=== PATIENT | female | born 1965 | race Caucasian/White ===

== ENCOUNTER 2021-05-29 03:53 | Emergency (ER) | payer BC, OTHER ==
[~2021-05-29] VITALS: Ht 172.7 cm; Wt 75.3 kg
[2021-05-29 04:10] VITALS: BP 141/94
== END 2021-05-29 04:32 | disposition left against medical advice (07) ==
LOC: MED 03:53
DX: F30.9 Manic episode, unspecified (principal); G58.9 Mononeuropathy, unspecified
CPT/HCPCS: 99281

== ENCOUNTER 2021-07-25 03:15 | Emergency (ER) | payer BC, OTHER ==
[~2021-07-25] VITALS: Ht 170.2 cm; Wt 74.8 kg
--- NOTE | 2021-07-25 03:18 | NUR ---
PT KEELY BLS TO ER BED 06
[2021-07-25 03:25] VITALS: BP 113/76
--- NOTE | 2021-07-25 03:46 | NUR ---
56 Y/O FEMALE BIBA, C/O PSYCH EVAL. PATIENT PRESENTS TO ED WITH RAMBLING, EMOTIONALY LABILE. PT STATES SHE CALLED 911 FOR HER WHO IS "SEEING THINGS AND NOT TAKING CARE OF HI,SELF." PER EMS PT RECENTLY WAS D/C FROM A PSYCH FACILITY WHERE SHE WAS PLACED ON A 5150, FOR UNKOWN REASON. PT'S STATES SHE HAS BEEN NON MED COMPLIANT SINCE HER RELEASE. DENIES N/V/D; SKIN IS PINK/WARM/DRY; AAOX4 WITH EVEN AND STEADY GAIT; PT DENIES ANY FEVER, CP, SOB, OR COUGH AT THIS TIME; PATIENT STATES PAIN OF 0/10 AT THIS TIME; VSS; PATIENT POSITIONED FOR COMFORT; HOB ELEVATED; BEDRAILS UP X1; BED DOWN. ER MD MADE AWARE OF PT STATUS. HX: BIPOLAR AND SCHIZOPHRENIA NKA MEDS: VALPROIC ACID
--- NOTE | 2021-07-25 04:13 | NUR ---
ER MD AT BEDSIDE ASSESSING PT
--- NOTE | 2021-07-25 04:43 | NUR ---
xray at bedside
--- NOTE | 2021-07-25 05:16 | NUR ---
PT STATES "I AM WELL ENOUGH. I WANT TO GO HOME." DR. MIRANDA NOTIFIED.
--- NOTE | 2021-07-25 05:40 | NUR ---
DR. MIRANDA AT BEDSIDE FOR REEVALUATION
[2021-07-25 05:55] VITALS: BP 113/76
--- NOTE | 2021-07-25 05:56 | NUR ---
Patient does not wish to proceed with medical care recommended by DR MIRANDA. Patient given information related to possible complications, up to and including , which could occur as a result of leaving hospital at this time. Patient verbalizes understanding of risks involved leaving against medical advice. Patient has signed AMA form. VSS, A/OX4, AMBULATORY, UNLABORED BREATHING, AND CALM DEMEANOR.
[2021-07-25] MEDS ORDERED: AMOX-1230 PO (23:49)
== END 2021-07-25 05:48 | disposition left against medical advice (07) ==
LOC: MED 03:15
DX: F31.9 Bipolar disorder, unspecified (principal); F20.9 Schizophrenia, unspecified; Z79.899 Other long term (current) drug therapy
CPT/HCPCS: 71045; 93005; 99285; Q0092

== ENCOUNTER 2021-07-25 22:10 | Emergency (ER) | payer BC, OTHER ==
[~2021-07-25] VITALS: Ht 170.2 cm; Wt 75.9 kg
[2021-07-25 22:33] VITALS: BP 116/75
--- NOTE | 2021-07-25 22:38 | NUR ---
pt taken to er bed 09
--- NOTE | 2021-07-25 23:05 | NUR ---
XRAY AT BEDSIDE
--- NOTE | 2021-07-25 23:20 | NUR ---
56 Y/O FEMALE BIBS, C/O DOG BITE AT 2100 TONIGHT. 5/10 LEFT HAND PAIN S/P DOG BITE. SMALL BLACK DOG, THAT WAS BEHIND A GATE TO A HOME, STATES SHE ALWAYS PETS THE DOG BUT THIS TIME BIT HER. PT STATES DOG LOOKS HEALTHY AND FRIENDLY. PT DOES NOT WANT TO PURSUE ANY LEGAL ACTION AGAINST THE DOG. DENIES HX RX:DEPAKOTE AND RISPERIDONE (NONCOMPLIANT) ALLERGY:DEPAKOTE AND CODEINE
[2021-07-25] MEDS ORDERED: LIDOCAINE MPF 1% 10 MG/ML VIAL IM ONE (23:35)
[2021-07-25] MEDS ORDERED: AMOX-1230 PO (23:49)
--- NOTE | 2021-07-26 00:23 | NUR ---
PT NOW WANTS TO FILE REPORT AGAIST DOG, ANIMAL BITE REPORT TAKEN AND FAXED TO [facility]. PT WAS INFORMED AND DISCHARGED.
[2021-07-26 00:27] VITALS: BP 116/75
--- NOTE | 2021-07-26 00:31 | NUR ---
Patient discharged with v/s stable. Written and verbal after care instructions given and explained. Patient alert, oriented and verbalized understanding of instructions. Ambulatory with steady gait. All questions addressed prior to discharge. ID band removed. Patient advised to follow up with PMD. Rx of AMOXICILLIN given. Patient educated on indication of medication including possible reaction and side effects. Opportunity to ask questions provided and answered. A/OX4, VSS, UNLABORED BREATHING, AMBULATORY, AND CALM DEMEANOR.
== END 2021-07-26 00:27 | disposition home or self-care (01) ==
LOC: MED 22:10
DX: S61.412A Laceration without foreign body of left hand, initial encounter (principal); W54.0XXA Bitten by dog, initial encounter; Y93.89 Activity, other specified; Y92.89 Other specified places as the place of occurrence of the external cause; Y99.8 Other external cause status
CPT/HCPCS: 73120; 99283; Q0092

== ENCOUNTER 2021-07-26 20:48 | Emergency (ER) | payer OTHER ==
[~2021-07-26] VITALS: Ht 170.2 cm; Wt 73.9 kg
[~2021-07-26 20:48] MED LIST: AMOX-1230 PO
[2021-07-26 21:20] VITALS: BP 138/84
--- NOTE | 2021-07-26 21:23 | NUR ---
to lobby a/w bed ambulatory
--- NOTE | 2021-07-26 22:34 | NUR ---
PT CALLED VIA PHONE BY DR. MENJIVAR. PER DR. MENJIVAR PT LWBS.
== END 2021-07-26 22:34 | disposition left against medical advice (07) ==
LOC: MED 20:48
DX: S61.412A Laceration without foreign body of left hand, initial encounter (principal); Z53.21 Procedure and treatment not carried out due to patient leaving prior to being seen by health care provider; W54.0XXA Bitten by dog, initial encounter; Y93.89 Activity, other specified; Y92.89 Other specified places as the place of occurrence of the external cause; Y99.8 Other external cause status

== ENCOUNTER 2021-07-29 07:39 | Emergency (ER) | payer OTHER ==
[~2021-07-29] VITALS: Ht 170.2 cm; Wt 75.9 kg
[2021-07-29 07:50] VITALS: BP 123/74
--- NOTE | 2021-07-29 07:53 | NUR ---
PATIENT AMBULATED TO BED 8.
--- NOTE | 2021-07-29 08:15 | NUR ---
AT PT BEDSIDE
--- NOTE | 2021-07-29 08:26 | NUR ---
LAB AT PT BEDSIDE
[2021-07-29 08:30] LABS: APPEARANCE,URINE SL CLOUDY (CLEAR); BILIRUBIN,URINE NEGATIVE (NEGATIVE); BLOOD, URINE 1+ (NEGATIVE); COLOR,URINE YELLOW (YELLOW); LEUKOCYTE ESTERASE ,URINE NEGATIVE (NEGATIVE); NITRITE, URINE POSITIVE (NEGATIVE); UGLUCOSE NEGATIVE (NEGATIVE)
--- NOTE | 2021-07-29 08:30 | NUR ---
56 Y/ FEMALE BIB SELF DUE TO NAUSEA/VOMITTING X2 DAYS S/P STARTING NEW MEDICATION DEPAKOTE. PT DENIES SOB, CHEST PAIN, FEVER OR CHILLS. PMH: DENIES ALLERGIES: CODEINE
[2021-07-29 08:38] LABS: BASOPHILS # (AUTO) 0.1 K/uL (0.00-0.22); BASOPHILS % (AUTO) 0.8 % (0.0-2.0); EOSINOPHILS # (AUTO) 0.2 K/uL (0-0.4); EOSINOPHILS % (AUTO) 2.5 % (0.0-4.0); HEMOGLOBIN 11.9 g/dL (12.0-16.0); LYMPHOCYTES # (AUTO) 1.8 K/uL (2.5-16.5); LYMPHOCYTES % (AUTO) 26.3 % (20.5-51.1); MEAN CORPUSCULAR HEMOGLOBIN 28 pg (27-31); MEAN CORPUSCULAR HGB CONC 33 g/dL (33-37); MEAN CORPUSCULAR VOLUME 84.1 fL (80-94); MONOCYTES # (AUTO) 0.6 K/uL (0.8-1.0); MONOCYTES % (AUTO) 9.3 % (1.7-9.3); NEUTROPHILS # (AUTO) 4.2 K/uL (1.8-7.7); NEUTROPHILS % (AUTO) 61.1 % (42.2-75.2); PLATELET COUNT (AUTO) 259 K/uL (140-450); RED BLOOD CELL COUNT(AUTO) 4.28 MIL/uL (4.20-5.40); RED CELL DISTRIBUTION WIDTH 14.2 % (11.6-13.7)
[2021-07-29 08:59] LABS: ALBUMIN 3.5 g/dL (3.4-5.0); ANION GAP 9.3 (8-16); CARBON DIOXIDE 28.9 mmol/L (21-32); CREATININE 0.8 mg/dL (0.6-1.3); POTASSIUM 4.2 mmol/L (3.5-5.1); TOTAL BILIRUBIN 0.8 mg/dL (0.0-1.0)
[2021-07-29 09:13] LABS: CALCIUM OXALATE CRYSTALS,UR None Seen /HPF (None Seen); OTHER CRYSTALS,URINE None Seen /HPF (None Seen); RBC,URINE 0-5 /HPF (0-5); TRICHOMONAS,URINE None Seen /HPF (None Seen); TRIPLE PHOSPHATE CRYSTAL,UR None Seen /HPF (None Seen); URIC ACID CRYSTALS,URINE None Seen /HPF (None Seen); URINE AMORPHOUS URATE None Seen /HPF (None Seen); WBC,URINE 0-5 /HPF (0-5); YEAST,URINE None Seen /HPF (None Seen)
[2021-07-29 09:14] LABS: COARSE GRANULAR CASTS,URINE None Seen /LPF (None Seen); FINE GRANULAR CASTS,URINE None Seen /LPF (None Seen); HYALINE CASTS, URINE None Seen /LPF (None Seen); OTHER CASTS, URINE None Seen /LPF (None Seen); RED BLOOD CELL CASTS,URINE None Seen /LPF (None Seen); WAXY CASTS,URINE None Seen /LPF (None Seen)
--- NOTE | 2021-07-29 09:26 | NUR ---
PT RUNNING IN PLACE AT THIS TIME STATING THAT SHE IS COLD. I OFFERED HER BLANKETS AND SHE STATED SHE DOESNT WANT TO WAIT IN HERE AND WOULD RATHER WAIT IN LOBBY, PRIMARY RN MADE AWARE.
--- NOTE | 2021-07-29 09:28 | NUR ---
PT DECIDED THAT SHE COULD NOT WAIT IN ROOM. SHE WOULD RATHER WAIT IN THE LOBBY. MADE AWARE.
--- NOTE | 2021-07-29 09:41 | NUR ---
PT RETURNED BACK TO ER BED 8 AND STATED "ITS EVEN COLDER IN THE LOBBY". OFFERED BLANKETS A SECOND TIME SHE WAITS, PT STATED "IM FINE".
[2021-07-29] MEDS ORDERED: ONDA-188 PO (09:42)
[2021-07-29 09:58] VITALS: BP 123/74
== END 2021-07-29 09:58 | disposition home or self-care (01) ==
LOC: MED 07:39
DX: F41.9 Anxiety disorder, unspecified (principal); T42.6X5A Adverse effect of other antiepileptic and sedative-hypnotic drugs, initial encounter; Y92.89 Other specified places as the place of occurrence of the external cause; F31.9 Bipolar disorder, unspecified; Z88.5 Allergy status to narcotic agent; Z79.899 Other long term (current) drug therapy
CPT/HCPCS: 36415; 80053; 81001; 81025; 83690; 85025; 99283

== ENCOUNTER 2021-09-27 13:25 | Emergency (ER) | payer OTHER ==
[~2021-09-27] VITALS: Ht 167.6 cm; Wt 61.2 kg
[~2021-09-27 13:25] MED LIST changes: +ONDA-188 PO
[2021-09-27 13:27] VITALS: BP 138/71
[2021-09-27] MEDS ORDERED: KETOROLAC 60 MG/2 ML VIAL IM ONE (13:35)
[2021-09-27] MEDS ORDERED: IBUP-2213 PO (14:21)
[2021-09-27 14:30] VITALS: BP 110/67
== END 2021-09-27 14:30 | disposition home or self-care (01) ==
LOC: MED 13:25
DX: S90.122A Contusion of left lesser toe(s) without damage to nail, initial encounter (principal); Z79.899 Other long term (current) drug therapy; Z79.2 Long term (current) use of antibiotics; Z88.5 Allergy status to narcotic agent; Z88.8 Allergy status to other drugs, medicaments and biological substances; W22.8XXA Striking against or struck by other objects, initial encounter; Y92.89 Other specified places as the place of occurrence of the external cause; Y93.89 Activity, other specified; Y99.8 Other external cause status
CPT/HCPCS: 96372; 99283; J1885

== ENCOUNTER 2021-10-09 07:58 | Inpatient (IN) | payer BC, OTHER ==
[~2021-10-09] VITALS: Ht 170.2 cm; Wt 72.6 kg
[~2021-10-09 07:58] MED LIST changes: +IBUP-2213 PO
--- NOTE | 2021-10-09 07:59 | NUR ---
DR ZHANG AT BEDSIDE EVALUATING PT
--- NOTE | 2021-10-09 07:59 | NUR ---
PATIENT BIBA TO BED 5.
--- NOTE | 2021-10-09 08:01 | NUR ---
pt assisted into bed by amr to bed 05
[2021-10-09 08:02] VITALS: BP 139/72
[2021-10-09] MEDS ORDERED: LORazepam 2 MG/ML VIAL IM ONE (08:05)
[2021-10-09] MEDS ORDERED: OLANZapine 5 MG ODT PO ONE (08:05)
[2021-10-09 08:44] LABS: BARBITURATE, URINE NEGATIVE ng/ml (NEG <=200); BENZODIAZEPINE, URINE NEGATIVE ng/mL (NEG <=200); CANNABINOID, URINE NEGATIVE ng/mL (NEG <=50); COCAINE, URINE NEGATIVE ng/mL (NEG <=300); OPIATE, URINE NEGATIVE ng/mL (NEG <=2000); PHENCYCLIDINE SCREEN,URINE NEGATIVE ng/mL (NEG <=25)
--- NOTE | 2021-10-09 08:58 | NUR ---
56YO FEMALE BIBA FROM HOME. PER [facility] , PT CALLED X3 AND ASKED FOR PSYCHIATRIC EVALUATION. UPON ARRIVAL PT INSISTED ON EVALUATION STATING " SHE NEEDS TO BE SEEN" . PT AAOX4 WITH EPISODES OF CONFUSION. PT WILL CHANGE SUBJECTS EVERY OTHER SENTENCE. PT COOPERATIVE AND WITH BIPOLAR EMOTIONS. "KILL ME BECAUSE I CANT DO IT MYSELF" " I LOVE MY " " I CANT STAND MY " "IM NOT BIPOLAR" " I HAVE PTSD, HELP ME" " YOURE GOING TO KILL ME"" BEING IN A HOSPITAL IS HUMILIATING". HX" UNOBTAINABLE ALLERGIES: CODEINE, DEPAKOTE
--- NOTE | 2021-10-09 09:00 | NUR ---
PT SWABBED FOR COVID(NABEEL & NOVEL) . SPECIMEN HANDED TO LAB
--- NOTE | 2021-10-09 09:20 | NUR ---
PT AT REST AND SLEEPING SUPINE POSITION.
[2021-10-09 09:44] LABS: BASOPHILS % (AUTO) 0.4 % (0.0-2.0); EOSINOPHILS # (AUTO) 0.1 K/uL (0-0.4); EOSINOPHILS % (AUTO) 1.1 % (0.0-4.0); HEMATOCRIT 34.3 % (36-48); HEMOGLOBIN 11.1 g/dL (12.0-16.0); LYMPHOCYTES # (AUTO) 1.7 K/uL (2.5-16.5); LYMPHOCYTES % (AUTO) 23.7 % (20.5-51.1); MEAN CORPUSCULAR HEMOGLOBIN 27 pg (27-31); MEAN CORPUSCULAR HGB CONC 33 g/dL (33-37); MEAN CORPUSCULAR VOLUME 83.1 fL (80-94); MONOCYTES # (AUTO) 0.5 K/uL (0.8-1.0); MONOCYTES % (AUTO) 7.5 % (1.7-9.3); NEUTROPHILS # (AUTO) 4.8 K/uL (1.8-7.7); NEUTROPHILS % (AUTO) 67.3 % (42.2-75.2); PLATELET COUNT (AUTO) 240 K/uL (140-450); RED BLOOD CELL COUNT(AUTO) 4.13 MIL/uL (4.20-5.40); RED CELL DISTRIBUTION WIDTH 13.7 % (11.6-13.7); WHITE BLOOD COUNT (AUTO) 7.1 K/uL (4.8-10.8)
[2021-10-09 10:30] LABS: ACETAMINOPHEN < 0.5 ug/ml (10-30); SALICYLATE < 2.8 mg/dL (2.8-20.0)
[2021-10-09 10:44] LABS: ALBUMIN 3.2 g/dL (3.4-5.0); ANION GAP 7.8 (8-16); CARBON DIOXIDE 27.6 mmol/L (21-32); CREATININE 0.8 mg/dL (0.6-1.3); POTASSIUM 3.4 mmol/L (3.5-5.1); THYROID STIMULATING HORMONE 2.38 uIU/mL (0.34-3.74); TOTAL BILIRUBIN 1.2 mg/dL (0.0-1.0)
--- NOTE | 2021-10-09 13:21 | NUR ---
PT MEDICALLY CLEARED PER JARRET CELISHA
--- NOTE | 2021-10-09 13:33 | NUR ---
PT OFFERED AND PROVIDED WITH LUNCH. PT REFUSED "STILL SLEEPY". FOOD LEFT AT BEDSIDE
--- NOTE | 2021-10-09 17:10 | NUR ---
PT AWAKE, DENIES PAIN AT THIS TIME. STATES " STILL SLEEPY"
--- NOTE | 2021-10-09 17:15 | NUR ---
PT AMBULATED TO RESTROOM
--- NOTE | 2021-10-09 17:18 | NUR ---
PT AMBULATED BACK TO ROOM
--- NOTE | 2021-10-09 18:25 | NUR ---
PT PROVIDED WITH DINNER. PT EATING IN BED
--- NOTE | 2021-10-09 19:25 | NUR ---
REPORT GIVEN TO ZAC CLAY. ALL QUESTIONS ANSWERED. TRANSFER OF CARE AT THIS TIME
--- NOTE | 2021-10-09 20:00 | NUR ---
PATIENT APPEARS TO BE RESTING. RR APPEARS EVEN AND UNLABORED. CINDI SIDE RAILS UP FOR SAFETY. ALL NEEDS MET AT THIS TIME.
--- NOTE | 2021-10-09 21:30 | NUR ---
ALMA OFFERED FOOD AND DRINKS. SITTING UP AND EATING. ALL NEEDS MET
--- NOTE | 2021-10-09 23:07 | NUR ---
PATIENT RESTING IN BED, BED LOW AND LOCKED. ALL NEEDS MET AT THIS TIME.
--- NOTE | 2021-10-10 02:30 | NUR ---
PATIENT EATING AND STTING UP IN BED.
--- NOTE | 2021-10-10 03:30 | NUR ---
PATIENT APPEARS TO BE RESTING IN BED. RR EVEN AND UNLABORED CINDI. DOESNT APPEAR TO BE IN ANY RR DISTRESS. BED LOW AND LOCKED. ALL NEEDS MET.
--- NOTE | 2021-10-10 03:59 | NUR ---
VERBAL ORDER GIVEN BY MD LEARY. VITAL QSHIFT. VERBAL READBACK. ORDERS CARRIED OUT
--- NOTE | 2021-10-10 04:53 | NUR ---
Telepsych computer placed at foot of bed.
--- NOTE | 2021-10-10 07:20 | NUR ---
REPORT GIVEN TO DANNA SOLIZ. TRANSFER OF CARE
--- NOTE | 2021-10-10 07:25 | NUR ---
Recieved report from DANNA Burgess for transfer of care.
--- NOTE | 2021-10-10 08:20 | NUR ---
PATIENT IS SPEAKING TO PSYCHIATRIST.
--- NOTE | 2021-10-10 08:53 | NUR ---
CALLED AND SPOKE TO [place] [employer] DISPATCH TO COME WRITE A 5150 HOLD. DISPATCHER SAID THEY WILL SEND SOMEONE OUT SOON.
[2021-10-10] MEDS ORDERED: LORazepam 1 MG TAB PO ONE ×2 (08:55→22:45)
--- NOTE | 2021-10-10 09:03 | NUR ---
[place] [employer] AT BEDSIDE.
--- NOTE | 2021-10-10 09:16 | NUR ---
PER [place] [employer] PATIENT DOES NOT MEET CRITERIA FOR A 5150 HOLD. WILL NOTIFY PSYCHIATRIST.
--- NOTE | 2021-10-10 11:39 | NUR ---
PATIENT IS SLEEPING ON BED, VITAL SIGNS STABLE. PATIENT HAS NO SIGNS OF DISTRESS. WILL CONTINUE TO MONITOR.
--- NOTE | 2021-10-10 12:36 | NUR ---
PATIENT IS SITTING UP ON HER BED EATING, LUNCH TRAY WAS OFFERED TO PATIENT.
--- NOTE | 2021-10-10 14:25 | NUR ---
PATIENT IS LAYING DOWN IN BED, VITAL SIGNS STABLE. PATIENT HAS NEEDS MET. PATIENT IS BEING OFFERED SNACKS. PATIENT'S RESPIRATIONS EVEN AND UNLABORED.
--- NOTE | 2021-10-10 16:27 | NUR ---
PATIENT IS PACING HER ROOM, BACK AND FORTH. ATTEMPTING TO REDIRECT PATIENT.
--- NOTE | 2021-10-10 17:43 | NUR ---
PATIENT ELOPED FROM FACILITY.
--- NOTE | 2021-10-10 17:50 | NUR ---
MADDY FROM [facility] CALLED THIS TIME FOR PT ELOPEMENT.
--- NOTE | 2021-10-10 18:10 | NUR ---
[place] [employer] WAS NOTIFIED OF PATIENT BEING FOUND, NO LONGER NEED PD ASSISTANCE.
--- NOTE | 2021-10-10 18:22 | NUR ---
Anu esqueda in [facility] - 10/10/21 at 1824 by [place] [employer] WAS NOTIFIED OF PATIENT BEING FOUND IN FACILITY.
--- NOTE | 2021-10-10 18:25 | NUR ---
PATIENT IS SITTING ON BED, EATING DINNER TRAY.
--- NOTE | 2021-10-10 18:40 | NUR ---
PATIENT IS NOTED TO BE PACING ROOM, PATIENT IS BEING OFFERED COLORING BOOK AND COLORS. ATTEMPTING TO REDIRECT PATIENT.
--- NOTE | 2021-10-10 19:07 | NUR ---
PATIENT ELOPED FROM FACILITY
--- NOTE | 2021-10-10 19:10 | NUR ---
PATIENT LEFT ER DEPARTMENT. NOTIFIED SECURITY AND PD
--- NOTE | 2021-10-10 19:28 | NUR ---
RETURN CALL FROM MISTY SINHA WHO FOUND PT AND WILL RETURN TO FACILITY
--- NOTE | 2021-10-10 19:28 | NUR ---
RECIEVED A CALL FROM [place] [employer] PATIENT HAS BEEN FOUND AND WILL BE BROUGHT BACK TO FACILITY SHORTLY.
--- NOTE | 2021-10-10 19:33 | NUR ---
PT RETURNED TO BED 5
--- NOTE | 2021-10-10 19:34 | NUR ---
MISTY SINHA AT [facility]
--- NOTE | 2021-10-10 19:42 | NUR ---
REPORT RECIEVED FROM HEYDI CLAY. KAT DIA AT 1907. UNWITNESSED. [facility] RETURNED WITH PATIENT AT 193. PATIENT IS NOT ON A 5150. PENDING TELEPSYCH.
--- NOTE | 2021-10-10 19:53 | NUR ---
56YR FEMALE BIB EMS ON 10/09/21 FOR SI STATEMENTS. PT IS A&OX3. UP AT LEONIDES STEADY GAIT. PT ELOPED AT 1907 AND WAS RETURNED WITH CAMI SINHA . PT WAS FOUND AT [facility]. PT IS AT BEDSIDE TALKING WITH OFFICER . TELEPSCHY PENDING. JAMEEL MOLINA
[2021-10-10] MEDS ORDERED: OLANZapine 5 MG TAB PO SCH (21:00)
[2021-10-10] MEDS ORDERED: LORazepam 1 MG TAB ONE (22:50)
[2021-10-10] MEDS ORDERED: LORazepam 2 MG/ML VIAL IM ONE (22:55)
[2021-10-10] MEDS ORDERED: diphenhydrAMINE 50 MG/ML VIAL IM ONE (22:55)
--- NOTE | 2021-10-10 23:00 | NUR ---
PATIENT HAS BEEN ASKED TO RESPECT THE PRIVACY OF OTHER PATIENTS. PT WAS WALKING INTO OTHER PATIENTS ROOM. YELLING OUT AND LAYING ON THE FLOOR, THROWING MEDS ON FLOOR.
--- NOTE | 2021-10-11 | NUR ---
PATIENT PLACED ON MONITOR BY CLARITZA CERNA
--- NOTE | 2021-10-11 00:57 | NUR ---
PENDING TELEPSYCH NO ETA DUE TO HIGH VOLUME.
--- NOTE | 2021-10-11 01:45 | NUR ---
PT IS RESTING RESP EVEN AND UNLABORED. PT ON MONITOR
--- NOTE | 2021-10-11 03:30 | NUR ---
PATIENT HAD $16 DOLLARS IN HER POSSESSION. MONEY WAS TAKEN TO PBX TO HOLD.
--- NOTE | 2021-10-11 03:57 | NUR ---
PT ASLEEP RESP EVEN AND UNLABORED. SIDE RAILS UP X2. PT ON BEDSIDE MONITOR.
--- NOTE | 2021-10-11 05:43 | NUR ---
PATIENT SLEEPING WITH BLANKET OVER FACE. NO DISTRESS NOTED. RESP EVEN AND UNLABORED
--- NOTE | 2021-10-11 05:54 | NUR ---
PT UP TO BATHROOM. GAIT STEADY
--- NOTE | 2021-10-11 07:23 | NUR ---
REPORT RECEIVED FROM CRISTINA CLAY. ASSUMED CARE AT THIS TIME
--- NOTE | 2021-10-11 07:23 | NUR ---
report given to PAULINA CLAY. transfered care at this time
--- NOTE | 2021-10-11 07:30 | NUR ---
PT AT REST AND SLEEPING IN SUPINE POSITION. RESPIRATIONS EVEN AND UNLABORED. PT IN VIEW, BED AT LOWEST POSITION WITH BED RAILS UP X2.
[2021-10-11] MEDS ORDERED: HYDR50CA9 PO (07:43)
[2021-10-11] MEDS ORDERED: IBUP-2213 PO (08:28)
--- NOTE | 2021-10-11 08:51 | NUR ---
Pt transferred to Med/Surg via bed with nurse Barbour.
--- NOTE | 2021-10-11 08:51 | NUR ---
Patient will be admitted to care of [facility]. Admited to [facility]. Will go to room 117. Belongings list completed. Report to THOR BOSS. ALL QUESTIONED ANSWERED
--- NOTE | 2021-10-11 08:52 | NUR ---
Chart checked and completed. The patient's care was reviewed and supervised by Nora Taylor RN.
[2021-10-11 09:00] VITALS: BP 122/81
--- NOTE | 2021-10-11 09:07 | NUR ---
RECEIVE ENDORCESEMENT FRO ER NURSE PAULINA WHILE PATIENT FROM ER FOR COVID POSITIVE, PSYCHOTIC CRISIS. VITAL WNL, NO ACUTE RESPIRATORY DISTRESS, WILL CONTINUE TO MONITOR .
[2021-10-11 11:22] VITALS: BP 120/73
--- NOTE | 2021-10-11 14:15 | NUR ---
PATIENT CALL 911 BECAUSE THAT HER PERIPHERAL IV CATHETER IS OUT. WILL CONTINUE TO MONITOR
[2021-10-11 16:00] VITALS: BP 110/72
--- NOTE | 2021-10-11 19:30 | NUR ---
RECEIVED BEDSIDE REPORT FROM DAY SHIFT RN FOR CONTINUITY OF CARE. PT IS CURRENTLY ON TELE PSYCH CALL. PT SHOWS NO SIGNS OF ACUTE DISTRESS. PT HAS NO IV SITE PER DAY SHIFT NURSE SHE PULLED IT OUT AND CALLED 911. BED AT THE LOWEST POSITION. HEAD OF BED RAISED. ALL SAFETY MEASURES TAKEN. WILL CONTINUE TO MONITOR THE PT.
--- NOTE | 2021-10-11 19:55 | NUR ---
ENDORSE PT TO PM SHIFT NURSE WHILE PATIENT REST ON BED, PSYCHOTIC CONSULT JUST COMPLETE, VITAL WNL, NO ACUTE RESPIRATORY DISTRESS, NO IV ACCESS AT THIS TIME
[2021-10-11 20:00] VITALS: BP 118/73
[2021-10-11] MEDS: TEMAZEPAM 15 MG CAP PO SCH (20:26)
--- NOTE | 2021-10-11 20:35 | NUR ---
PT WAS GIVEN TEMAZEPAM PER MD ORDER. EXPLAIN TO THE PT WHAT MEDICATION I WAS GIVEN AND WHAT FOR AND THEN THE PT STARTED CRYING. SHE SAID SHE DOESN'T NEED ANY MEDICATION TO CHANGE HER FEELINGS. SHE WANTS TO BE ABLE TO FEEL. THEN SHE STARTED SAYING HER IS GOING TO KILL HER FRIEND THAT HE KNOWS TOO MUCH AND THEN SHE SUDDENLY CHANGE MOODS AGAIN. SHE LET ME GIVE HER THE MEDICATION. SHE PULLED IT OUT OF THE CUP AND STARTED FLIPPING LIKE IT WAS A COIN SAYING IF ITS HEAD SHE WILL TAKE IT AND TAILS SHE WOULDN'T. SHE ENDED UP TAKING THEM. SHE STARTED TALKING ABOUT MUSIC SHE LIKES. ASKED HER IF SHE ANYTHING LIKE MORE WATER. SHE SAID SHE WILL USE THE CALL LIGHT IF SHE NEEDS MORE WATER. NO COMPLAINS. PT WAS CALM AT THE END. PLAN OF CARE DISCUSSED. COMMUNICATION BOARD UPDATED. WILL CONTINUE TO MONITOR THE PT.
--- NOTE | 2021-10-11 22:35 | NUR ---
PT CALLED STATING THE MEDICATION WAS MAKING HER LEFT HAND NUMB. SHE STATES SHE DID NOT SLEEP ON IT. SHE SAYS THE MEDICATION MAY BE TOO STRONG. SHE MIGHT NEED A LESS DOSAGE TO MAKE A NOTE OF THAT. PT HAS NO OTHER COMPLAINS. WILL CONTINUE TO MONITOR THE PT.
--- NOTE | 2021-10-12 | NUR ---
PT IS AWAKE IN BED RESTING IN BED. PT DENIES ANY PAIN. HAS NO COMPLAINS AT THIS TIME. PT IS CALM SHOWING NO SIGNS OF AGITATION OR PSYCH EPISODES. WILL CONTINUE TO MONITOR THE PT.
--- NOTE | 2021-10-12 02:26 | NUR ---
PT IS SLEEPING COMFORTABLY IN BED. PT IS NOT IN ANY RESPIRATORY DISTRESS. BREATHING EVEN AND UNLABORED. CALL LIGHT WITHIN REACH. ALL SAFETY MEASURES TAKEN. WILL CONTINUE TO MONITOR THE PT.
[2021-10-12 04:00] VITALS: BP 111/76
--- NOTE | 2021-10-12 04:23 | NUR ---
PT IS AWAKE. PT IS CALM. PT DENIES ANY PAIN AND HAS NO COMPLAINS AT THIS TIME. ALL NEEDS MET. WILL CONTINUE TO MONITOR THE PT.
[2021-10-12 05:51] LABS: HEMATOCRIT 35.8 % (36-48); HEMOGLOBIN 11.7 g/dL (12.0-16.0); MEAN CORPUSCULAR HEMOGLOBIN 27 pg (27-31); MEAN CORPUSCULAR HGB CONC 33 g/dL (33-37); MEAN CORPUSCULAR VOLUME 83.8 fL (80-94); RED BLOOD CELL COUNT(AUTO) 4.28 MIL/uL (4.20-5.40); RED CELL DISTRIBUTION WIDTH 13.9 % (11.6-13.7); WHITE BLOOD COUNT (AUTO) 7.2 K/uL (4.8-10.8)
[2021-10-12 05:52] LABS: BASOPHILS % (AUTO) 0.5 % (0.0-2.0); EOSINOPHILS # (AUTO) 0.2 K/uL (0-0.4); EOSINOPHILS % (AUTO) 2.4 % (0.0-4.0); LYMPHOCYTES # (AUTO) 2.4 K/uL (2.5-16.5); MONOCYTES # (AUTO) 0.6 K/uL (0.8-1.0); MONOCYTES % (AUTO) 8.1 % (1.7-9.3); PLATELET COUNT (AUTO) 214 K/uL (140-450)
[2021-10-12 06:50] LABS: ANION GAP 8.7 (8-16); CARBON DIOXIDE 29.3 mmol/L (21-32); CREATININE 0.8 mg/dL (0.6-1.3)
--- NOTE | 2021-10-12 07:05 | NUR ---
ENDORSED PT TO DAY SHIFT RN FOR CONTINUITY OF CARE. PT IS STABLE.
[2021-10-12 07:17] LABS: PHOSPHORUS 4.5 mg/dL (2.5-4.9)
--- NOTE | 2021-10-12 07:47 | NUR ---
RECEIVE ENDORSEMENT FROM PM SHIFT NURSE WHILE PATIENT REST ON BED, VITAL WNL, NO ACUTE RESPIRATORY DISTRESS, NO IV ACCESS AT THIS TIME. WILL CONTINUE TO MONITOR
[2021-10-12 08:00] VITALS: BP 116/81
--- NOTE | 2021-10-12 09:11 | NUR ---
PATIENT HAS BEEN SCREENED AND CATEGORIZED LOW NUTRITION RISK. PATIENT WILL BE SEEN WITHIN 7 DAYS OF ADMISSION. 10/17/[address]
[2021-10-12] MEDS: LITHIUM CARBONATE 300 MG TAB PO SCH ×3 (09:41→17:08)
[2021-10-12] MEDS: risperiDONE 1 MG TAB PO SCH ×3 (09:42→17:08)
--- NOTE | 2021-10-12 14:30 | NUR ---
DC PLANNING: PATIENT BIB EMS SECONDARY TO MANIC EPISODE. H/O BIPOLAR DISORDER, STATES SHE HAS NOT BEEN TAKING HER MEDICATION. THE PATIENT WAS EVALUATED BY SOC WITH A RECOMMENDATION FOR INVOLUNTARY PSYCHIATRIC ADMISSION. PATIENT HAS H/O TREATMENT AT [facility] BUT CAN'T REMEMBER THE DATES. PATIENT IS COVID POSITIVE. ORDER FOR PATIENT TO BE PLACED IN A SNF, NO SW AVAILABLE TODAY, CM ASKED NURSING TO GIVE THE PATIENT THE RESOURCE PACKET FOR SHELTERS AND TO EXPLAIN THAT SHE WOULD HAVE TO ARRANGE THIS HERSELF. INVOLUNTARY COMMITMENT IS NOT SOMETHING THAT CAN BE ARRANGED FOR THE PATIENT AND SHE WILL NOT BE ACCEPTED WHILE SHE IS COVID POSITIVE. CM WILL FOLLOW.
[2021-10-12 16:00] VITALS: BP 108/76
--- NOTE | 2021-10-12 19:28 | NUR ---
ENDORSE PT TO PM SHIFT NURSE WHILE PATIENT REST ON BED, VITAL WNL, NO ACUTE RESPIRATORY DISTRESS, NO IV ACCESS AT THIS TIME. WAITING FOR COVID TEST RESULT AT THIS TIME.
--- NOTE | 2021-10-12 19:30 | NUR ---
RECEIVED REPORT FROM AM SHIFT NURSE. PT AWAKE, ALERT AND ORIENTED. ON ROOM AIR, BREATHING EQUAL AND UNLABORED. NO IV ACCESS. PT AMBULATORY. NO COMPLAINS OF PAIN AT THIS TIME. ALL PRECAUTIONS IN PLACE.CALL LIGHT WITHIN REACH. WILL CONTINUE TO MONITOR.
[2021-10-12] MEDS: TEMAZEPAM 15 MG CAP PO SCH (20:45)
--- NOTE | 2021-10-12 21:00 | NUR ---
SCHEDULED MEDICATION GIVEN. PT TOLERATED WELL. WILL CONTINUE TO MONITOR.
--- NOTE | 2021-10-13 02:05 | NUR ---
PT IS SLEEPING. PT IS NOT IN ANY RESPIRATORY DISTRESS. BREATHING EVEN AND UNLABORED. CALL LIGHT WITHIN REACH. ALL SAFETY MEASURES TAKEN. WILL CONTINUE TO MONITOR.
[2021-10-13 04:00] VITALS: BP 110/75
--- NOTE | 2021-10-13 07:20 | NUR ---
RECEIVED REPORT FROM BOARD LINER OPERATOR NURSE FOR CONTINUITY OF CARE. PATIENT ASLEEP NO DISTRESS NOTED. RESPIRATION EVEN AND NOT LABORED ON ROOM AIR. NO IV SITE DUE TO PATIENT REFUSAL. PATIENT ON DROPLET ISOLATION. CALL LIGHT WITH IN EASY REACH.
--- NOTE | 2021-10-13 07:30 | NUR ---
RECEIVED REPORT FROM DANNA GIL, FOR CONTINUITY OF CARE. PT IS STABLE. PLAN OF CARE DISCUSSED.
[2021-10-13] MEDS: risperiDONE 1 MG TAB PO SCH ×4 (09:07→17:30)
[2021-10-13] MEDS: LITHIUM CARBONATE 300 MG TAB PO SCH ×4 (09:07→17:30)
--- NOTE | 2021-10-13 09:24 | NUR ---
GIVEN PATIENT MEDICATION TOLERATED WELL. NO COUGH , FEVER, CONGESTION OR SHORTNESS OF BREATH. PATIENT REPORTED TO ME THAT SHE HAD GOOD AMOUNT OF BOWEL MOVEMENT. PATIENT SEEMS TO BE ON GOOD MOOD. CALL LIGHT WITH IN EASY REACH. ISOLATION FOR DROPLET OBSERVED.
--- NOTE | 2021-10-13 11:30 | NUR ---
PATIENT ASK FOR SNACKS INFORM THAT LUNCH IS ALMOST HERE AND GIVEN JUICE AND PUDDING AND SHE APPRECIATED IT.
--- NOTE | 2021-10-13 12:30 | NUR ---
PATIENT ATE HER LUNCH. NO DISTRESS NO ABNORMAL BEHAVIOR.
--- NOTE | 2021-10-13 14:09 | NUR ---
Patient on phone given her medication. tolerated well. Patient on pleasant mood.
[2021-10-13 16:00] VITALS: BP 101/70
--- NOTE | 2021-10-13 17:34 | NUR ---
I TRIED TO GIVE PATIENT LITHIUM AND RESPERIDONE BUT SHE REFUSED STATED I DON'T NEED IT. EVEN WITH ENCOURAGEMENT AND EXPLANATION OF RISK AND BENEFIT. PATIENT STATED I WILL TRY NOT TO TAKE ANY THING RIGHT NOW I'M OKAY.
--- NOTE | 2021-10-13 19:10 | NUR ---
GAVE REPORT TO FLOTATION TENDER HELPER NURSE FOR CONTINUITY OF CARE.
--- NOTE | 2021-10-13 19:20 | NUR ---
RECEIVED REPORT FROM DAY SHIFT NURSE. PT AWAKE, ALERT AND ORIENTED. ON ROOM AIR, BREATHING EQUAL AND UNLABORED. NO DISTRESS NOTED.NO IV ACCESS. PT AMBULATORY. NO COMPLAINS OF PAIN AT THIS TIME. ALL PRECAUTIONS IN PLACE.CALL LIGHT WITHIN REACH. WILL CONTINUE TO MONITOR.
[2021-10-13 20:00] VITALS: BP 149/69
[2021-10-13] MEDS: TEMAZEPAM 15 MG CAP PO SCH (20:58)
--- NOTE | 2021-10-13 21:00 | NUR ---
SCHEDULED MEDICATION GIVEN. PT TOLERATED WELL. WILL CONTINUE TO MONITOR.
--- NOTE | 2021-10-14 00:28 | NUR ---
NURSE MAXWELL FROM [facility] CALLED TO INFORMED ME THAT A BED IS NOW AVAILABLE FOR PT TRANSFER.
--- NOTE | 2021-10-14 00:58 | NUR ---
PT IS SLEEPING. PT IS NOT IN ANY RESPIRATORY DISTRESS. BREATHING EVEN AND UNLABORED. CALL LIGHT WITHIN REACH. ALL SAFETY MEASURES TAKEN. WILL CONTINUE TO MONITOR.
--- NOTE | 2021-10-14 02:14 | NUR ---
PATIENT IS ASLEEP. NO S/SX OF DISCOMFORT. CALL LIGHT IN REACH.
--- NOTE | 2021-10-14 02:30 | NUR ---
NURSE ALISSA FROM [facility] CALLED AGAIN, SHE TOLD ME THAT THEY NEED 2 CONSECUTIVE COVID NEGATIVE TEST BEFORE THEY ACCEPT THE PATIENT TO THEIR FACILITY AND CALL BACK ONCE THE TEST IS RESULTED.[facility] PH: [phone].
--- NOTE | 2021-10-14 03:30 | NUR ---
COVID PCR TEST DONE.
[2021-10-14 04:00] VITALS: BP 112/72
--- NOTE | 2021-10-14 04:35 | NUR ---
NO ACUTE DISTRESS NOTED. CALL LIGHT WITHIN REACH.
--- NOTE | 2021-10-14 06:56 | NUR ---
ALL NEEDS ATTENDED TO. NO DISTRESS NOTED. SAFETY PRECAUTIONS MAINTAINED DURING THE SHIFT, CALL LIGHT WITHIN REACH. WILL ENDORSE CARE TO AM RN.
--- NOTE | 2021-10-14 07:55 | NUR ---
GOT REPORT FROM THE NIGHT NURSE , PT FAST ASLEEP. LOOKS COMFORTABLE , NO SOB.[id number]
[2021-10-14] MEDS: LITHIUM CARBONATE 300 MG TAB PO SCH ×3 (08:52→13:11)
[2021-10-14] MEDS: risperiDONE 1 MG TAB PO SCH ×3 (08:53→17:07)
--- NOTE | 2021-10-14 08:54 | NUR ---
PT REFUSED THE MORNING MED, SAYS IT MADE MY HAND NUMB , AND I AM HAPPY NOW I DO NOT NEED IT,SWAPNA
[2021-10-14 12:50] VITALS: BP 112/72
--- NOTE | 2021-10-14 18:28 | NUR ---
PT CONTINUE TO TAKE RESPERAL, BUT NOT LITHIUM, [id number]
--- NOTE | 2021-10-14 19:40 | NUR ---
PT ELOPED FROM THE BACK DOOR. PT DID NOT HAVE IV IN PLACE. INFORMED SECURITY. INFORMED TYPING ELEMENT MACHINE OPERATOR ON DUTY. NOTIFIED MISTY SINHA.
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
--- NOTE | 2021-10-14 19:56 | NUR ---
INFORMED MISTY SINHA OF THE 5150 HOLD GRAVELY DISABLED. THEY STATED THEY WILL BE ON THEIR WAY TO SEE IF PATIENT IS OUTSIDE OR ON [facility].
== END 2021-10-14 19:28 | disposition left against medical advice (07) | DRG 885 ==
LOC: MED 07:58 → MTU 10-11 08:43
PROVIDERS: ADMIT Student in an Organized Health Care Education/Training Program; ATTEND Student in an Organized Health Care Education/Training Program
DX: F31.9 Bipolar disorder, unspecified (principal); G93.41 Metabolic encephalopathy; E44.1 Mild protein-calorie malnutrition; E87.6 Hypokalemia; E88.09 Other disorders of plasma-protein metabolism, not elsewhere classified; E80.6 Other disorders of bilirubin metabolism; D64.9 Anemia, unspecified; Z20.822 Contact with and (suspected) exposure to COVID-19; Z88.5 Allergy status to narcotic agent; Z88.8 Allergy status to other drugs, medicaments and biological substances; Z79.899 Other long term (current) drug therapy; Z79.1 Long term (current) use of non-steroidal anti-inflammatories (NSAID); Z68.25 Body mass index [BMI] 25.0-25.9, adult
CPT/HCPCS: 36415; 80048; 80053; 80305; 83735; 84100; 84443; 84484; 85025; 87081; 87635-QW; 96372; 99285; C9803-CS; G0480; G0482; J1200; J2060

== ENCOUNTER 2021-10-29 06:47 | Emergency (ER) | payer BC, OTHER ==
[~2021-10-29] VITALS: Ht 170.2 cm; Wt 70.8 kg
[~2021-10-29 06:47] MED LIST changes: -AMOX-1230 PO; +HYDR50CA9 PO
[2021-10-29 06:48] VITALS: BP 110/71
--- NOTE | 2021-10-29 06:51 | NUR ---
PT KEELY BLS. TAKEN TO BED 5
--- NOTE | 2021-10-29 06:53 | NUR ---
Dr. Mcqueen examining patient.
[2021-10-29] MEDS ORDERED: HALOPERIDOL IM 5 MG/ML VIAL IM ONE (07:00)
[2021-10-29] MEDS ORDERED: diphenhydrAMINE 50 MG/ML VIAL IM ONE (07:00)
[2021-10-29] MEDS ORDERED: LORazepam 2 MG/ML VIAL IM ONE (07:00)
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
--- NOTE | 2021-10-29 07:17 | NUR ---
[place] PD AT BEDSIDE
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
--- NOTE | 2021-10-29 07:32 | NUR ---
5150 HOLD WRITTEN AT THIS TIME, GRAVELY DISABLED.
[2021-10-29 09:10] LABS: BASOPHILS # (AUTO) 0.1 K/uL (0.00-0.22); BASOPHILS % (AUTO) 1.1 % (0.0-2.0); EOSINOPHILS # (AUTO) 0.2 K/uL (0-0.4); EOSINOPHILS % (AUTO) 2.6 % (0.0-4.0); HEMATOCRIT 33.5 % (36-48); LYMPHOCYTES # (AUTO) 1.7 K/uL (2.5-16.5); LYMPHOCYTES % (AUTO) 27.6 % (20.5-51.1); MEAN CORPUSCULAR HEMOGLOBIN 28 pg (27-31); MEAN CORPUSCULAR HGB CONC 33 g/dL (33-37); MEAN CORPUSCULAR VOLUME 83.7 fL (80-94); MONOCYTES # (AUTO) 0.6 K/uL (0.8-1.0); NEUTROPHILS # (AUTO) 3.5 K/uL (1.8-7.7); NEUTROPHILS % (AUTO) 58.7 % (42.2-75.2); PLATELET COUNT (AUTO) 197 K/uL (140-450); RED CELL DISTRIBUTION WIDTH 14.5 % (11.6-13.7)
[2021-10-29 09:24] LABS: APPEARANCE,URINE HAZY (CLEAR); BILIRUBIN,URINE NEGATIVE (NEGATIVE); BLOOD, URINE TRACE-I (NEGATIVE); COLOR,URINE YELLOW (YELLOW); LEUKOCYTE ESTERASE ,URINE TRACE (NEGATIVE); NITRITE, URINE NEGATIVE (NEGATIVE); UGLUCOSE NEGATIVE (NEGATIVE)
[2021-10-29 09:34] LABS: ALBUMIN 3.3 g/dL (3.4-5.0); ASPARTATE AMINOTRANSFERASE 20 U/L (15-37); CARBON DIOXIDE 28.6 mmol/L (21-32); CHLORIDE 107 mmol/L (98-107); CREATININE 0.9 mg/dL (0.6-1.3); GFR ARICAN-AMERICAN 84 mL/min (>90); GLUCOSE 91 mg/dL (74-106); POTASSIUM 3.6 mmol/L (3.5-5.1); SODIUM SERUM 142 mmol/L (136-145); TOTAL BILIRUBIN 0.9 mg/dL (0.0-1.0); UREA NITROGEN, BLOOD 15 mg/dL (7-18)
[2021-10-29 09:35] LABS: BARBITURATE, URINE NEGATIVE ng/ml (NEG <=200); BENZODIAZEPINE, URINE NEGATIVE ng/mL (NEG <=200); CANNABINOID, URINE NEGATIVE ng/mL (NEG <=50); COCAINE, URINE NEGATIVE ng/mL (NEG <=300); OPIATE, URINE NEGATIVE ng/mL (NEG <=2000); PHENCYCLIDINE SCREEN,URINE NEGATIVE ng/mL (NEG <=25)
[2021-10-29 09:36] LABS: ACETAMINOPHEN < 0.5 ug/ml (10-30); SALICYLATE < 2.8 mg/dL (2.8-20.0)
[2021-10-29 09:41] LABS: CALCIUM OXALATE CRYSTALS,UR None Seen /HPF (None Seen); COARSE GRANULAR CASTS,URINE None Seen /LPF (None Seen); FINE GRANULAR CASTS,URINE None Seen /LPF (None Seen); HYALINE CASTS, URINE None Seen /LPF (None Seen); OTHER CASTS, URINE None Seen /LPF (None Seen); OTHER CRYSTALS,URINE None Seen /HPF (None Seen); RBC,URINE 0-5 /HPF (0-5); RED BLOOD CELL CASTS,URINE None Seen /LPF (None Seen); TRICHOMONAS,URINE None Seen /HPF (None Seen); TRIPLE PHOSPHATE CRYSTAL,UR None Seen /HPF (None Seen); URIC ACID CRYSTALS,URINE None Seen /HPF (None Seen); URINE AMORPHOUS URATE None Seen /HPF (None Seen); WAXY CASTS,URINE None Seen /LPF (None Seen); YEAST,URINE None Seen /HPF (None Seen)
--- NOTE | 2021-10-29 09:53 | NUR ---
PT MEDICALLY CLEARED BY DR BORREGO.
--- NOTE | 2021-10-29 11:33 | NUR ---
PT IN BED ASLEEP
--- NOTE | 2021-10-29 12:22 | NUR ---
Packet has been faxed to the [facility] facilities [facility] ELLIS/Prachi
--- NOTE | 2021-10-29 13:11 | NUR ---
S/W Honorio in ER, patient was accepted at [facility]
--- NOTE | 2021-10-29 15:18 | NUR ---
ATTEMPTED TO CALL FOR REPORT FOR [facility], NO RESPONSE
--- NOTE | 2021-10-29 15:43 | NUR ---
GAVE REPORT TO RAYMOND BOSS OF [facility]
--- NOTE | 2021-10-29 17:25 | NUR ---
TRANSPORT IN ED FOR PT, TRANSPORT VIA GURNEY, PATIENT IS CALM AND AWAKE, SPEAKING IN FULL SENSTENCES, SPEECH CLEAR
--- NOTE | 2021-10-29 17:30 | NUR ---
Patient to be transferred to [facility]. Is being transferred due to HIGHE LEVEL OF CARE. Receiving facility has accepting physician and available space. ER physician has signed transfer form. Patient or responsible green party has agreed to transfer and signed form. Patient belongings inventoried and will be sent with patient. Copy of nursing notes, lab reports, EKG, Physicians Orders and X-rays to be sent with patient. Report called to RAYMOND BOSS at receiving facility. [facility] ambulance service has been called for transfer. ETA is 20MIN.
[2021-10-29 17:31] VITALS: BP 130/75
== END 2021-10-29 17:30 ==
LOC: MED 06:47
DX: F29 Unspecified psychosis not due to a substance or known physiological condition (principal); Z20.822 Contact with and (suspected) exposure to COVID-19; M25.552 Pain in left hip; F20.9 Schizophrenia, unspecified; F32.9 Major depressive disorder, single episode, unspecified; Z79.899 Other long term (current) drug therapy
CPT/HCPCS: 36415; 80053; 80305; 81001; 85025; 87086; 87426; 87635; 93005; 96372; 99285; C9803; G0480; J1200; J1630; J2060

== ENCOUNTER 2021-11-13 12:58 | Emergency (ER) | payer BC, OTHER ==
[~2021-11-13] VITALS: Ht 172.7 cm; Wt 63.5 kg
--- NOTE | 2021-11-13 12:58 | NUR ---
BIBA TAKEN TO BED 2
--- NOTE | 2021-11-13 13:00 | NUR ---
DR ZHANG AT BEDSIDE EVALUATING PT
[2021-11-13 13:05] VITALS: BP 147/83
[2021-11-13 13:08] VITALS: BP 111/66
[2021-11-13] MEDS ORDERED: OLANZapine 5 MG ODT PO ONE (13:25)
--- NOTE | 2021-11-13 13:32 | NUR ---
PT WALKED OUT OF ER. PT WAS THEN ESCORTED BACK TO ED BY SECURITY. PT CURSING AT STAFF. PT ASSISTED BACK TO ER BED 2.
--- NOTE | 2021-11-13 13:38 | NUR ---
RAD AT BEDSIDE
[2021-11-13] MEDS ORDERED: NAPR-1704 PO (14:23)
[2021-11-13 14:28] VITALS: BP 122/54
--- NOTE | 2021-11-13 14:28 | NUR ---
Patient discharged with v/s stable. Written and verbal after care instructions given and explained. Patient alert, oriented and verbalized understanding of instructions. Ambulatory with steady gait. All questions addressed prior to discharge. ID band removed. Patient advised to follow up with PMD. Rx of NAPROSEN given. Patient educated on indication of medication including possible reaction and side effects. Opportunity to ask questions provided and answered.
== END 2021-11-13 14:28 | disposition home or self-care (01) ==
LOC: MED 12:58
DX: M25.552 Pain in left hip (principal); F20.9 Schizophrenia, unspecified
CPT/HCPCS: 73502; 81025; 99283; Q0092

== ENCOUNTER 2021-11-20 12:04 | Emergency (ER) | payer BC, OTHER ==
[~2021-11-20] VITALS: Ht 172.7 cm; Wt 71.0 kg
[~2021-11-20 12:04] MED LIST changes: +NAPR-1704 PO
[2021-11-20 12:26] VITALS: BP 122/74
--- NOTE | 2021-11-20 12:30 | NUR ---
pt to sergey flores
--- NOTE | 2021-11-20 12:35 | NUR ---
pt bib self c/o rt ear pain x 1 week. PT DENIES N/V/D; SKIN IS INTACT, PINK/WARM/DRY; AAOX4, PERRL, WITH EVEN AND STEADY GAIT; LUNGS CLEAR BL, BREATHING UNLABORED; HR EVEN AND REGULAR. PT DENIES ANY FEVER, CP, SOB, OR COUGH AT THIS TIME; PT STATES 0/10 PAIN AT THIS TIME; VSS; PATIENT POSITIONED FOR COMFORT; HOB ELEVATED; BEDRAILS UP X2; BED DOWN.
[2021-11-20] MEDS ORDERED: [UNRECOGNIZED DRUG - CODE] LEFT EAR (13:08)
--- NOTE | 2021-11-20 13:13 | NUR ---
Patient discharged with v/s stable. Written and verbal after care instructions given and explained. Patient alert, oriented and verbalized understanding of instructions. Ambulatory with steady gait. All questions addressed prior to discharge. ID band removed. Patient advised to follow up with PMD. Rx of ciprofloxacin given. Patient educated on indication of medication including possible reaction and side effects. Opportunity to ask questions provided and answered.
== END 2021-11-20 13:13 | disposition home or self-care (01) ==
LOC: MED 12:04
DX: H60.92 Unspecified otitis externa, left ear (principal); Z88.5 Allergy status to narcotic agent; Z88.8 Allergy status to other drugs, medicaments and biological substances
CPT/HCPCS: 99283

== ENCOUNTER 2021-11-26 14:31 | Emergency (ER) | payer OTHER ==
[~2021-11-26] VITALS: Ht 172.7 cm; Wt 69.9 kg
[~2021-11-26 14:31] MED LIST changes: +[UNRECOGNIZED DRUG - CODE] LEFT EAR
[2021-11-26 14:35] VITALS: BP 127/84
--- NOTE | 2021-11-26 14:46 | NUR ---
NABEEL specimens obtained, handed to EFFIE Carreno at bedside.
--- NOTE | 2021-11-26 15:04 | NUR ---
Dr. Seals evaluating patient at bedside.
--- NOTE | 2021-11-26 15:12 | NUR ---
PT AMBULATED TO RESTROOM FOR URINE SAMPLE
--- NOTE | 2021-11-26 15:16 | NUR ---
Lab at bedside.
[2021-11-26 15:32] LABS: BASOPHILS % (AUTO) 0.5 % (0.0-2.0); EOSINOPHILS # (AUTO) 0.1 K/uL (0-0.4); EOSINOPHILS % (AUTO) 1.3 % (0.0-4.0); HEMATOCRIT 36.3 % (36-48); HEMOGLOBIN 11.9 g/dL (12.0-16.0); LYMPHOCYTES # (AUTO) 1.9 K/uL (2.5-16.5); LYMPHOCYTES % (AUTO) 22.8 % (20.5-51.1); MEAN CORPUSCULAR HEMOGLOBIN 27 pg (27-31); MEAN CORPUSCULAR HGB CONC 33 g/dL (33-37); MEAN CORPUSCULAR VOLUME 83.4 fL (80-94); MONOCYTES # (AUTO) 0.6 K/uL (0.8-1.0); MONOCYTES % (AUTO) 6.6 % (1.7-9.3); NEUTROPHILS # (AUTO) 5.9 K/uL (1.8-7.7); NEUTROPHILS % (AUTO) 68.8 % (42.2-75.2); PLATELET COUNT (AUTO) 240 K/uL (140-450); RED BLOOD CELL COUNT(AUTO) 4.36 MIL/uL (4.20-5.40); WHITE BLOOD COUNT (AUTO) 8.5 K/uL (4.8-10.8)
[2021-11-26 15:49] LABS: ACETAMINOPHEN < 0.5 ug/ml (10-30); ALBUMIN 3.8 g/dL (3.4-5.0); ASPARTATE AMINOTRANSFERASE 15 U/L (15-37); CARBON DIOXIDE 28.2 mmol/L (21-32); CHLORIDE 107 mmol/L (98-107); CREATININE 1.1 mg/dL (0.6-1.3); GFR ARICAN-AMERICAN 67 mL/min (>90); GLUCOSE 101 mg/dL (74-106); POTASSIUM 4.2 mmol/L (3.5-5.1); SALICYLATE < 2.8 mg/dL (2.8-20.0); SODIUM SERUM 142 mmol/L (136-145); TOTAL BILIRUBIN 0.9 mg/dL (0.0-1.0); UREA NITROGEN, BLOOD 14 mg/dL (7-18)
[2021-11-26] MEDS ORDERED: OLANZapine 5 MG ODT PO ONE (15:55)
[2021-11-26 16:03] LABS: BARBITURATE, URINE NEGATIVE ng/ml (NEG <=200); BENZODIAZEPINE, URINE NEGATIVE ng/mL (NEG <=200); CANNABINOID, URINE NEGATIVE ng/mL (NEG <=50); COCAINE, URINE NEGATIVE ng/mL (NEG <=300); OPIATE, URINE NEGATIVE ng/mL (NEG <=2000); PHENCYCLIDINE SCREEN,URINE NEGATIVE ng/mL (NEG <=25)
--- NOTE | 2021-11-26 18:59 | NUR ---
Packet received for placement Fx to the following facilities [facility]
--- NOTE | 2021-11-26 19:32 | NUR ---
Pt report given to DANNA Nicolas. Transfer of care at this time.
--- NOTE | 2021-11-26 21:47 | NUR ---
pt given kp rajan
--- NOTE | 2021-11-27 03:10 | NUR ---
PT YELLLING AND SCREAMING ABOUT WANTING TO LEAVE. PT TOLD TO QUIET HERSELF D/T OTHER PTS TRYING TO SLEEP
--- NOTE | 2021-11-27 03:45 | NUR ---
PT STILL YELLING DR. MENJIVAR ORDER ATIVAN
[2021-11-27] MEDS ORDERED: LORazepam 1 MG TAB PO ONE (04:00)
--- NOTE | 2021-11-27 05:08 | NUR ---
TELEPSYCH INITIATED PER DR. MENJIVAR
--- NOTE | 2021-11-27 07:22 | NUR ---
RECIEVED REPORT FROM DANNA MERCADO FOR TRANSFER OF CARE.
--- NOTE | 2021-11-27 07:26 | NUR ---
Pt report given to HEYDI. Transfer of care at this time.
[2021-11-27] MEDS ORDERED: LORazepam 1 MG TAB ONE (07:48)
--- NOTE | 2021-11-27 07:50 | NUR ---
PER DR. BORREGO OK TO GIVE ATIVAN [address] MENJIVAR ORDERED.
--- NOTE | 2021-11-27 08:24 | NUR ---
Patient was offered her breakfast tray. Tray was left at bedside.
--- NOTE | 2021-11-27 08:34 | NUR ---
Telepsych doctor speaking to patient.
--- NOTE | 2021-11-27 09:00 | NUR ---
Patient is sitting up eating breakfast at bedside.
--- NOTE | 2021-11-27 09:11 | NUR ---
PER TELEPSYCH CARLEY CLINTON, PT DOES NOT MEET CRITERIA FOR INVOLUNTARY COMMITMENT. PT UP FOR D/C BY DR BORREGO.
--- NOTE | 2021-11-27 09:40 | NUR ---
CONTACTED PTS ANN TO PICK HER UP, STATED HE WOULD PICK HER UP, PT TO WAIT IN LOBBY FOR RIDE.
[2021-11-27 09:47] VITALS: BP 128/70
--- NOTE | 2021-11-27 09:47 | NUR ---
Patient discharged with v/s stable. Written and verbal after care instructions given. Patient verbalized understanding. Ambulatory with steady gait. All questions addressed prior to discharge. Advised to follow up with PMD. MENTAL RESOURCE PACKET WAS GIVEN.
--- NOTE | 2021-11-27 09:48 | NUR ---
The patient's care was reviewed and supervised by Ally Gómez RN.
== END 2021-11-27 09:47 | disposition home or self-care (01) ==
LOC: MED 14:31
DX: R45.851 Suicidal ideations (principal); Z20.822 Contact with and (suspected) exposure to COVID-19; I10 Essential (primary) hypertension; F31.9 Bipolar disorder, unspecified; F20.9 Schizophrenia, unspecified; Z88.5 Allergy status to narcotic agent; Z88.8 Allergy status to other drugs, medicaments and biological substances
CPT/HCPCS: 36415; 80053; 80305; 81002; 81025; 85025; 87426; 87635; 99283; C9803; G0480; G0482